=== PATIENT | female | born 1970 | race Caucasian/White ===

== ENCOUNTER → 2018-02-23 | Outpatient (CLI) | payer BC | LOC: FIMAGING 09:35 | PROVIDERS: ATTEND Physician Assistant Medical | DX: N63.11 Unspecified lump in the right breast, upper outer quadrant (principal) ==

== ENCOUNTER → 2018-02-24 | Outpatient (CLI) | payer BC ==
[~2018-02-24] MED LIST: BUPIVACAINE 0.5% 30 ML SDV ONE; LIDOCAINE 1% 300 MG/30 ML SDV ONE; THROMBIN (BOVINE) 5,000 UNIT VIAL TP ONE
== END ==
LOC: FIMAGING 07:24
PROVIDERS: ATTEND Physician Assistant Medical
PROC: 0HBT3ZX Excision of Right Breast, Percutaneous Approach, Diagnostic (ICD-10-PCS; principal; 2018-02-24)
DX: C50.911 Malignant neoplasm of unspecified site of right female breast (principal)

== ENCOUNTER 2018-03-30 05:29 | Day surgery (SDC) | payer BC ==
[2018-03-30] MEDS ORDERED: LR 1,000 ML IV ONE (05:49)
[2018-03-30] MEDS ORDERED: BUPIVACAINE/EPI 0.25% 30 ML SDV ONE (06:19)
[2018-03-30] MEDS ORDERED: MIDAZOLAM 2 MG/2 ML VIAL IVP ONE (06:56)
[2018-03-30] MEDS ORDERED: HYDROCODONE/APAP 5/325 TAB PO PRN (06:56)
[2018-03-30] MEDS ORDERED: HYDROmorphONE/DILAUDID 2 MG/ML INJ IVP PRN (06:56)
[2018-03-30] MEDS ORDERED: ACETAMINOPHEN 500 MG TAB PO PRN (06:56)
[2018-03-30] MEDS ORDERED: NALOXONE HCL 0.4 MG/ML INJ IVP PRN (06:56)
[2018-03-30] MEDS ORDERED: fentaNYL 100 MCG/2 ML INJ IVP PRN (06:56)
[2018-03-30] MEDS ORDERED: PROMETHAZINE HCL 25 MG/ML INJ IVP PRN (06:56)
[2018-03-30] MEDS ORDERED: ONDANSETRON 4 MG/2 ML VIAL IVP PRN (06:56)
[2018-03-30] MEDS ORDERED: SCOPOLAMINE HYDROBROMIDE 1 MG/3 DAYS PATCH TD SCH (07:00)
[2018-03-30] MEDS ORDERED: ceFAZolin 3 GM in D5W 100 ML IV ONE (07:01)
--- NOTE | 2018-03-30 07:02 | PDHPUP ---
History & Physical Update H&P update statement: This history and physical update is based on an assessment of the patient which was completed after admission or registration (within 24 hours), but prior to the surgery/procedure. H&P update: H&P reviewed & patient examined, no change in patient's condition since H&P completed
--- NOTE | 2018-03-30 07:11 | PDANEPAE ---
ANE History of Present Illness Vascular Port Access ANE Past Medical History - Cardiovascular History Hx Hypertension: Yes Hx Arrhythmias: No Hx Chest Pain: No Hx Coronary Artery / Peripheral Vascular Disease: No Hx CHF / Valvular Disease: No Hx Palpitations: No - Pulmonary History Hx COPD: No Hx Asthma/Reactive Airway Disease: No Hx Recent Upper Respiratory Infection: No Hx Oxygen in Use at Home: No Hx Sleep Apnea: No Sleep Apnea Screening Result - Last Documented: Negative Pulmonary History Comment: COLD CAN TRIGGER ASTHMA - Neurologic History Hx Cerebrovascular Accident: No Hx Seizures: No Hx Dementia: No - Endocrine History Hx Diabetes: No - Renal History Hx Renal Disorders: No - Liver History Hx Hepatic Disorders: No - Neurological & Psychiatric Hx Hx Neurological and Psychiatric Disorders: No - Cancer History Hx Cancer: Yes Cancer History Comment: NEW DX BREAST CA. HX LUNG CA. CHOLECYECTEMOMY - Congenital Disorder History Hx Congenital Disorders: No - GI History Hx Gastrointestinal Disorders: No - Other Health History Other Health History: NONE - Chronic Pain History Chronic Pain: No - Surgical History Prior Surgeries: none in last 5 yrs. iud placed ANE Review of Systems Review of Systems: - Exercise capacity METS (RN): 4 METS ANE Patient History - Allergies Allergies/Adverse Reactions: aspirin Allergy (Verified 03/29/18 15:27) Rash Penicillins Allergy (Verified 03/29/18 15:27) Rash - Home Medications Home Medications: Losartan Potassium 03/29/18 [Last Taken 03/29/18] Lorazepam 0.5 mg PO PRN PRN 03/30/18 [Last Taken 03/29/18] - NPO status NPO Since - Liquids (Date): 03/29/18 NPO Since - Liquids (Time): 21:00 NPO Since - Solids (Date): 03/29/18 NPO Since - Solids (Time): 21:00 - Smoking Hx Smoking Status: Never smoked - Family Anes Hx Family Hx Anesthesia Complications: daughter has same issue ANE Labs/Vital Signs - Vital Signs Blood Pressure: 155/88 Heart Rate: 80 Respiratory Rate: 16 O2 Sat (%): 95 Height: 172.72 cm Weight: 135.624 kg ANE Physical Exam - Airway Neck exam: FROM Mallampati Score: Class 2 Mouth exam: normal dental/mouth exam - Pulmonary Pulmonary: clear to auscultation - Cardiovascular Cardiovascular: regular rate and rhythym - ASA Status ASA Status: III ANE Anesthesia Plan Anesthesia Plan: GA w LMA
[2018-03-30] MEDS ORDERED: PROPOFOL/EMULSION 500 MG/50 ML BOTTLE IV ONE ×2 (07:42)
[2018-03-30] MEDS ORDERED: METOCLOPRAMIDE 10 MG/2 ML VIAL ONE (07:46)
[2018-03-30] MEDS ORDERED: DEXAMETHASONE 4 MG/ML VIAL ONE ×2 (07:46)
[2018-03-30] MEDS ORDERED: ONDANSETRON 4 MG/2 ML VIAL ONE (07:46)
[2018-03-30] MEDS ORDERED: fentaNYL 100 MCG/2 ML INJ ONE (07:59)
[2018-03-30] MEDS ORDERED: ePHEDrine SULFATE 25 MG/5 ML SYR ONE (08:27)
--- NOTE | 2018-03-30 08:48 | POSTANESTH ---
Post Anesthetic Evaluation Cardiovascular Status: Normal, Stable Respiratory Status: Normal, Stable Level of Consciousness/Mental Status: Mildly Sleepy, Arousable Pain Control: Adequate, Prn Tx Ordered Nausea/Vomiting Control: Adequate, Prn Tx Ordered Complications Possibly Related to Anesthesia: None Noted
--- NOTE | 2018-03-30 09:05 | POSTOPPROG ---
Post Op Note Date of Operation: 03/30/18 Surgeon: Alirio Alberts Anesthesiologist: Tom Anesthesia: GET(General Endotracheal) Pre-op Diagnosis: Breast cancer Post-op Diagnosis: same Procedure: L US guided IJ power port placement c fluoro Findings: good placement, hep locked Inf/Abcess present in the surg proc area at time of surgery?: No EBL: Minimal
[2018-03-30 10:54] VITALS: BP 125/70
--- NOTE | 2018-03-30 11:25 | GOP ---
DATE OF OPERATION: 03/30/2018 SURGEON: Alirio Alberts MD DEDICATED LOCAL TRUCK DRIVER: None. ANESTHESIA: General endotracheal. ANESTHESIOLOGIST: Dr. Evans Santos. PREOPERATIVE DIAGNOSIS: Right-sided breast cancer. POSTOPERATIVE DIAGNOSIS: Right-sided breast cancer. PROCEDURE PERFORMED: Ultrasound-guided left internal jugular PowerPort placement with intraoperative fluoroscopy. FINDINGS: Successful cannulation and placement of left internal jugular PowerPort. Port both flushe d and withdrew appropriately. It was heparin locked. SPECIMENS: None. ESTIMATED BLOOD LOSS: 5 cc. DESCRIPTION OF PROCEDURE: The patient was greeted in the preoperative suite, and once again, risks, benefits, and alternatives were discussed. Consent was signed. She was then brought back to the ope rative suite, placed on the OR table in supine position. After all anesthesia machines, including SC Ds were on and functioning, a World Health Organization time-out was performed. After successful ind uction of general anesthesia, the patient's left neck and chest was prepped and draped in typical luigi rile fashion. Using the ultrasound, I successfully identified the left internal jugular vein, accessed it, and thre aded the guidewire successfully. Once the guidewire was in appropriate position, the peel-away sheat h was successfully placed into the vein itself. I then created a site 2 fingerbreadths beneath the l eft-sided clavicle. I created a pocket inferiorly and successfully tunneled the catheter from this s ite to the stick site. It was then placed within the peel-away sheath, and sized appropriately at th e atrial caval junction. It was then trimmed, attached to the port proper. It both flushed and with elena appropriately. It was heparin locked. It was placed within the pocket. It was attached to the underlying subcutaneous tissue with interrupted Prolene suture laterally. Skin was then closed in l [place], first with interrupted 3-0 Vicryl, followed by 4-0 Monocryl over which Dermabond was placed. Patient was then extubated in the operative suite and taken to PACU in satisfactory condition. DRAINS: None. COUNTS: All counts were reported as correct x2. /[id number]/MODL
[2018-03-31] MEDS ORDERED: PATCH REMOVAL 1 EA PATCH TD ONE (06:57)
== END 2018-03-30 10:54 | disposition home or self-care (01) ==
LOC: FSGY 05:29
PROVIDERS: ATTEND Surgery
PROC: B544ZZA Ultrasonography of Left Jugular Veins, Guidance (ICD-10-PCS; principal; 2018-03-30 07:15)
PROC: 0JH60XZ Insertion of Tunneled Vascular Access Device into Chest Subcutaneous Tissue and Fascia, Open Approach (ICD-10-PCS; principal; 2018-03-30 07:15)
PROC: 02HV33Z Insertion of Infusion Device into Superior Vena Cava, Percutaneous Approach (ICD-10-PCS; principal; 2018-03-30 07:15)
PROC: B5141ZZ Fluoroscopy of Left Jugular Veins using Low Osmolar Contrast (ICD-10-PCS; principal; 2018-03-30 07:15)
DX: C50.411 Malignant neoplasm of upper-outer quadrant of right female breast (principal); Z17.1 Estrogen receptor negative status [ER-]; I10 Essential (primary) hypertension
CPT/HCPCS: C1788; J0690; J1100; J1642; J2250; J2405; J2704; J2765; J3010

== ENCOUNTER → 2018-04-02 | Outpatient (CLI) | payer OTHER ==
[~2018-04-02] MED LIST changes: -BUPIVACAINE 0.5% 30 ML SDV ONE; +GADOBUTROL 10 ML VIAL IVP ONE; -LIDOCAINE 1% 300 MG/30 ML SDV ONE; -THROMBIN (BOVINE) 5,000 UNIT VIAL TP ONE
== END ==
LOC: FIMAGING 11:44
PROVIDERS: ATTEND Surgery
DX: C50.411 Malignant neoplasm of upper-outer quadrant of right female breast (principal); R59.0 Localized enlarged lymph nodes
CPT/HCPCS: A9585; C8908

== ENCOUNTER 2018-04-20 06:28 | Day surgery (SDC) | payer OTHER ==
[2018-04-20] MEDS ORDERED: LIDOCAINE 1% 300 MG/30 ML SDV ONE (08:02)
[2018-04-20] MEDS ORDERED: ceFAZolin 3 GM in D5W 100 ML IV ONE (08:23)
[2018-04-20] MEDS ORDERED: BUPIVACAINE 0.5% 30 ML SDV ONE (09:30)
--- NOTE | 2018-04-20 09:55 | PDGENHP ---
History and Physical - Chief Complaint R breast cancer - History of Present Illness 47yo F, new palpable, painful lump in R breast. 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 Has had onc consult, MRI. Original plan was for oly-adj chemo, but patient wants tumor out 2/2 increasing anxiety. History Information - Allergies/Home Medication List Allergies/Adverse Reactions: aspirin Allergy (Verified 03/29/18 15:27) Rash Penicillins Allergy (Verified 03/29/18 15:27) Rash Home Medications: Losartan Potassium 03/29/18 [Last Taken 03/29/18] Lorazepam 0.5 mg PO PRN PRN 03/30/18 [Last Taken 03/29/18] I have personally reviewed and updated: medical history, surgical history - Social History Smoking Status: Never smoked Review of Systems Review of Systems: ROS: 10pt was reviewed & negative except for what was stated in HPI & below Physical Exam Physical Exam: Constitutional: no apparent distress, appears nourished, not in pain Eyes: PERRL, anicteric sclera, EOMI Ears, Nose, Mouth, Throat: moist mucous membranes, hearing normal, ears appear normal, no oral mucosal ulcers Cardiovascular: regular rate and rhythym, no murmur, rub, or gallop, No edema Respiratory: no respiratory distress, no rales or rhonchi, clear to auscultation Gastrointestinal: normoactive bowel sounds, soft, non-tender abdomen, no palpable masses Genitourinary: no bladder fullness, no bladder tenderness Skin: warm, no rashes or abrasions, no fluctuance, no induration, other (R breast: palpable mass in lower outer quadrant of R breast. ), No mottled Musculoskeletal: full muscle strength, no muscle tenderness, normal joint ROM, no joint effusions Psychiatric: interacting appropriately, not anxious, not encephalopathic, thought process linear Lymph, Heme, Immunologic: no cervical LAD, no supraclavicular LAD Lab Data & Imaging Review Visualized and Interpreted imaging results: Yes Interpretation: MR: mass with cystic features in R breast. 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
[2018-04-20] MEDS ORDERED: LR 1,000 ML IV ONE (10:07)
--- NOTE | 2018-04-20 10:36 | PDANEPAE ---
ANE History of Present Illness BCA here for lumpectomy ANE Past Medical History - Cardiovascular History Hx Hypertension: Yes Hx Arrhythmias: No Hx Chest Pain: No Hx Coronary Artery / Peripheral Vascular Disease: No Hx CHF / Valvular Disease: No Hx Palpitations: No - Pulmonary History Hx COPD: No Hx Asthma/Reactive Airway Disease: Yes Hx Recent Upper Respiratory Infection: No Hx Oxygen in Use at Home: No Hx Sleep Apnea: Yes Sleep Apnea Screening Result - Last Documented: Negative Pulmonary History Comment: EXERCISE INDUCED ASTHMA - Neurologic History Hx Cerebrovascular Accident: No Hx Seizures: No Hx Dementia: No - Endocrine History Hx Diabetes: No - Renal History Hx Renal Disorders: No - Liver History Hx Hepatic Disorders: No - Neurological & Psychiatric Hx Hx Neurological and Psychiatric Disorders: No - Cancer History Hx Cancer: Yes Cancer History Comment: NEW DX BREAST CA. BASAL CELL CA FACE REMOVED - Congenital Disorder History Hx Congenital Disorders: No - GI History Hx Gastrointestinal Disorders: No - Other Health History Other Health History: NONE - Chronic Pain History Chronic Pain: No - Surgical History Prior Surgeries: PORT PLACEMENT. BREAST BX 02/2018. APPENDECTOMY. HERNIA INFANCY. iud placed ANE Review of Systems Review of Systems: - Exercise capacity METS (RN): 4 METS ANE Patient History - Allergies Allergies/Adverse Reactions: aspirin Allergy (Verified 03/29/18 15:27) Rash Penicillins Allergy (Verified 03/29/18 15:27) Rash - Home Medications Home Medications: Losartan Potassium 03/29/18 [Last Taken 03/29/18] Lorazepam 0.5 mg PO PRN PRN 03/30/18 [Last Taken 03/29/18] - NPO status NPO Status: no food or drink >8 hours NPO Since - Liquids (Date): 04/19/18 NPO Since - Liquids (Time): 21:00 NPO Since - Solids (Date): 04/19/18 NPO Since - Solids (Time): 19:00 - Anes Hx Anes Hx: post operative nausea and vomiting - Smoking Hx Smoking Status: Never smoked - Alcohol Use Alcohol Use: None - Family Anes Hx Family Anes Hx: none Family Hx Anesthesia Complications: daughter has same issue ANE Labs/Vital Signs - Vital Signs Blood Pressure: 156/88 Heart Rate: 79 Respiratory Rate: 16 O2 Sat (%): 94 Height: 172.72 cm Weight: 136.078 kg ANE Physical Exam - Airway Neck exam: FROM Mallampati Score: Class 2 Mouth exam: normal dental/mouth exam - Pulmonary Pulmonary: no respiratory distress, clear to auscultation - Cardiovascular Cardiovascular: regular rate and rhythym, no murmur, rub, or gallop - ASA Status ASA Status: II ANE Anesthesia Plan Anesthesia Plan: GA w LMA
[2018-04-20] MEDS ORDERED: MIDAZOLAM 2 MG/2 ML VIAL IVP ONE (10:38)
[2018-04-20] MEDS ORDERED: SCOPOLAMINE HYDROBROMIDE 1 MG/3 DAYS PATCH TD SCH (10:45)
[2018-04-20] MEDS ORDERED: fentaNYL 100 MCG/2 ML INJ ONE ×3 (10:45→12:21)
[2018-04-20] MEDS ORDERED: PROPOFOL 200 MG/20 ML VIAL ONE ×2 (10:46→13:02)
[2018-04-20] MEDS ORDERED: PROPOFOL/EMULSION 500 MG/50 ML BOTTLE IV ONE ×2 (10:59→11:58)
[2018-04-20] MEDS ORDERED: DEXAMETHASONE 4 MG/ML VIAL ONE (11:06)
[2018-04-20] MEDS ORDERED: NALOXONE HCL 0.4 MG/ML INJ IVP PRN ×2 (12:51→16:31)
[2018-04-20] MEDS ORDERED: PROMETHAZINE HCL 25 MG/ML INJ IVP PRN ×2 (12:51→16:31)
[2018-04-20] MEDS ORDERED: fentaNYL 100 MCG/2 ML INJ IVP PRN ×2 (12:51→16:31)
[2018-04-20] MEDS ORDERED: oxyCODONE IR 5 MG TAB PO PRN ×2 (12:51→16:31)
[2018-04-20] MEDS ORDERED: DIAZEPAM 5 MG/ML 1 ML SYR IVP PRN ×2 (12:51→16:31)
[2018-04-20] MEDS ORDERED: ACETAMINOPHEN 500 MG TAB PO PRN ×2 (12:51→16:31)
[2018-04-20] MEDS ORDERED: HYDROCODONE/APAP 5/325 TAB PO PRN (12:51)
[2018-04-20] MEDS ORDERED: ONDANSETRON 4 MG/2 ML VIAL IVP PRN (12:51)
--- NOTE | 2018-04-20 13:14 | POSTOPPROG ---
Post Op Note Date of Operation: 04/20/18 Surgeon: Alirio Alberts Anesthesiologist: Haley Anesthesia: GET(General Endotracheal) Pre-op Diagnosis: R breast cancer Post-op Diagnosis: same Procedure: R wire loc breast lumpectomy c SLNB Findings: clip in tissue, adequate margin. Inf/Abcess present in the surg proc area at time of surgery?: No Drains: Vadim Maddox Specimen(s): R breast mass R SLNB 4000
--- NOTE | 2018-04-20 13:17 | POSTANESTH ---
Post Anesthetic Evaluation Cardiovascular Status: Normal, Stable, Similar to Pre-Op Cond Respiratory Status: Normal, Stable, Similar to Pre-op Cond. Level of Consciousness/Mental Status: Moderately Sleepy Pain Control: Adequate, Prn Tx Ordered Nausea/Vomiting Control: Adequate, Prn Tx Ordered Complications Possibly Related to Anesthesia: None Noted
[2018-04-20] MEDS ORDERED: HYDROmorphONE/DILAUDID 2 MG/ML INJ ONE (13:41)
[2018-04-20] MEDS: HYDROmorphONE/DILAUDID 2 MG/ML INJ IVP PRN ×2 (13:43→13:51)
[2018-04-20] MEDS ORDERED: HYDROCODONE/APAP 5/325 TAB ONE (13:46)
[2018-04-20] MEDS ORDERED: ONDANSETRON 4 MG/2 ML VIAL ONE (14:41)
[2018-04-20 15:35] VITALS: BP 108/94
[2018-04-20] MEDS ORDERED: METOCLOPRAMIDE 10 MG/2 ML VIAL IVP PRN (16:31)
[2018-04-20] MEDS ORDERED: MEPERIDINE 25 MG/0.5 ML AMP IVP PRN (16:31)
[2018-04-20] MEDS ORDERED: ALBUTEROL 3 ML DEYVIAL IH PRN (16:31)
[2018-04-20] MEDS ORDERED: HYDROmorphONE/DILAUDID 2 MG/ML INJ IVP PRN (16:31)
[2018-04-20] MEDS ORDERED: PHENYLEPHRINE HCL 100 MCG/ML SYR IVP PRN (16:31)
[2018-04-20] MEDS ORDERED: LABETALOL HCL 5 MG/ML 20 ML MDV IVP PRN (16:31)
[2018-04-20] MEDS ORDERED: LR 500 ML IV PRN (16:31)
--- NOTE | 2018-04-20 17:01 | GOP ---
[f rep st] OPERATIVE REPORT DATE OF OPERATION: 04/20/2018 SURGEON: Alirio Alberts MD BACTERIOLOGY TECHNICIAN: None. ANESTHESIA: General endotracheal. ANESTHESIOLOGIST: Enrico De Leon MD PREOPERATIVE DIAGNOSIS: Right breast cancer. POSTOPERATIVE DIAGNOSIS: Right breast cancer. PROCEDURE PERFORMED: Wire localized right lumpectomy with sentinel lymph node biopsy. FINDINGS: Successful removal of mass with wire and clip based on post removal x -ray. Significant amount of healthy tissue as healthy margin taken. Jackson lymph node successfully taken from the axilla. The sentinel node had a count of 4000, the background was all 200 or less. SPECIMENS: 1. Right breast mass. 2. Right sentinel lymph node biopsy. 1. Additional inferior margin. 3. ESTIMATED BLOOD LOSS: 15 cc. DESCRIPTION OF PROCEDURE: The patient was greeted in the preoperative suite. Once again, risks, benefits, and alternatives were discussed. Consent was signed. She was then brought back to the operative suite, placed on the OR table in supine position. After all anesthesia machines were on and functioning , a World Health Organization time-out was performed. Prior to this, the patient was taken down to Radiology, where a wire was placed within the mass and she had a technetium injection for sentinel lymph node location. Once in the operating room, a World Health Organization time-out was performed. The right breast and axilla were prepped and draped in typical sterile fashion. I commenced the procedure by making a curvilinear incision on the outer portion of the right breast. I carried this down to the subcutaneous tissue. I then developed flaps both superiorly and inferiorly, carrying this around a significant mass of tissue. I then excised this mass. The wire was within it centrally. It was then successfully inked and passed off. Intraoperative x- ray of this showed that the clip and the wire were both successfully within the specimen with what appeared to be an adequate margin. I did end up taking an additional inferior margin, as it felt to be the smallest one, which ultimately took this margin down to the chest wall. Hemostasis was then achieved with gentle pressure. I turned my attention then toward the right axilla. I made a 3 cm incision along the hairline, and I dissected down through the subcutaneous tissue, and then entered the axilla proper. I then dissected through the axilla using the gamma probe and successfully identified 1 single hot sentinel lymph node with a count of 4000 or greater. This was successfully removed. The background gamma probe readings were all 200 or less, less than 10%. No other lymph nodes were identified. Hemostasis was then achieved in this cavity with gentle pressure. I then irrigated both cavities. I turned my attention toward closing the breast cavity first. I did decide to use a 15-[place] round DAMIEN drain. It was brought through the breast site via a separate stab incision. It was allowed to lay within the cavity. It was attached to the skin with an interrupted nylon suture. The skin was then closed with first interrupted 3-0 Vicryl followed by running 4-0 Monocryl. In the same fashion, I closed the axilla first with interrupted 3-0 Vicryl followed by running 4-0 Monocryl. Dermabond was then placed and a sterile pressure dressing was placed over the top of this. The patient was then extubated in the operative suite and taken to the PACU in satisfactory condition. COUNTS: All counts were reported as correct x2. /[id number]/MODL MTDD
== END 2018-04-20 15:47 | disposition home or self-care (01) ==
LOC: FSGY 06:28
PROVIDERS: ATTEND Surgery
PROC: 0HBT0ZX Excision of Right Breast, Open Approach, Diagnostic (ICD-10-PCS; principal; 2018-04-20 11:00)
PROC: 07B50ZX Excision of Right Axillary Lymphatic, Open Approach, Diagnostic (ICD-10-PCS; principal; 2018-04-20 11:00)
PROC: 0HHU3YZ Insertion of Other Device into Left Breast, Percutaneous Approach (ICD-10-PCS; 2018-04-20 11:00)
PROC: 3E0W3HZ Introduction of Radioactive Substance into Lymphatics, Percutaneous Approach (ICD-10-PCS; 2018-04-20 11:00)
DX: C50.411 Malignant neoplasm of upper-outer quadrant of right female breast (principal); R59.0 Localized enlarged lymph nodes; I10 Essential (primary) hypertension; G47.30 Sleep apnea, unspecified; Z88.0 Allergy status to penicillin
CPT/HCPCS: 19125; 19281; 38525; 76098; 78195; A9520; J0690; J1100; J1170; J1642; J2250; J2405; J2704; J3010